=== PATIENT | female | born 1975 | race Caucasian/White ===

== ENCOUNTER 2022-05-09 12:22 | Emergency (ER) | payer SELFPAY ==
[~2022-05-09] VITALS: Ht 157.5 cm; Wt 61.2 kg
[2022-05-09 12:30] VITALS: BP 120/71
[2022-05-09] MEDS ORDERED: IV NS 0.9% 1,000 ML IV ONE (13:00)
--- NOTE | 2022-05-09 13:06 | NUR ---
BACK TO ROOM FROM CT SCAN
[2022-05-09 13:16] LABS: BASOPHILS # (AUTO) 0.2 K/uL (0.0-0.2); BASOPHILS % (AUTO) 3.3 % (0.0-2.0); EOSINOPHILS % (AUTO) 4.7 % (0.0-6.0); HEMATOCRIT 43 % (33-45); HEMOGLOBIN 14.4 g/dL (11.5-14.8); LYMPHOCYTES # (AUTO) 2.3 K/uL (0.8-4.8); LYMPHOCYTES % (AUTO) 45.5 % (20.0-44.0); MEAN CORPUSCULAR HGB CONC 33 g/dl (31.0-36.0); MEAN CORPUSCULAR VOLUME 93 fL (82-100); MONOCYTES # (AUTO) 0.3 K/uL (0.1-1.30); MONOCYTES % (AUTO) 5.2 % (2.0-12.0); NEUTROPHILS # (AUTO) 2.1 K/uL (1.8-8.9); NEUTROPHILS % (AUTO) 41.3 % (43.0-81.0); PLATELET COUNT (AUTO) 304 K/uL (150-450); RED BLOOD CELL COUNT(AUTO) 4.69 MIL/uL (4.0-5.2)
[2022-05-09 13:29] LABS: CALCIUM, SERUM 8.8 mg/dL (8.5-10.1); CREATININE 0.7 mg/dL (0.6-1.3); POTASSIUM 3.9 mmol/L (3.5-5.1)
[2022-05-09 13:47] LABS: ALBUMIN 4.3 g/dL (3.4-5.0); BILIRUBIN,DIRECT 0.1 mg/dL (0.0-0.2); BILIRUBIN,TOTAL 0.4 mg/dL (0.2-1.0); TOTAL PROTEIN, SERUM 7.2 g/dL (6.4-8.2)
--- NOTE | 2022-05-09 13:52 | NUR ---
Patient discharged with steady gait. Left without D/C paper.
== END 2022-05-09 13:30 | disposition home or self-care (01) ==
LOC: ER 12:27
DX: F10.129 Alcohol abuse with intoxication, unspecified (principal); R41.82 Altered mental status, unspecified; Y90.8 Blood alcohol level of 240 mg/100 ml or more
CPT/HCPCS: 36415; 70450; 80048; 80076; 80143; 80307; 80320; 85025; 96360; 99284; J7030; G0480